=== PATIENT | male | born 1995 | race Caucasian/White ===

== ENCOUNTER 2018-08-30 14:50 | Emergency (ER) | payer OTHER, BC ==
[2018-08-30] MEDS: IBUPROFEN 600 MG TAB PO (17:27)
== END 2018-08-30 17:30 | disposition home or self-care (01) ==
LOC: M ED 14:50
DX: S70.02XA Contusion of left hip, initial encounter (principal); S70.12XA Contusion of left thigh, initial encounter; W55.89XA Other contact with other mammals, initial encounter; Y92.89 Other specified places as the place of occurrence of the external cause; Y99.0 Civilian activity done for income or pay
CPT/HCPCS: 72170

== ENCOUNTER 2022-01-07 16:09 | Emergency (ER) | payer OTHER, SELFPAY ==
[~2022-01-07] VITALS: Ht 180.3 cm; Wt 110.5 kg
[2022-01-07 16:09] VITALS: BP 145/85
== END 2022-01-07 17:50 | disposition left against medical advice (07) ==
LOC: M ED 16:09
DX: Z53.21 Procedure and treatment not carried out due to patient leaving prior to being seen by health care provider (principal)

== ENCOUNTER 2023-06-18 13:54 | Emergency (ER) | payer SELFPAY ==
[~2023-06-18] VITALS: Ht 180.3 cm; Wt 107.0 kg
[2023-06-18 16:07] LABS: RSV AMPLIFICATION NEGATIVE (NEGATIVE)
[2023-06-18] MEDS ORDERED: NS 1,000 ML IV ONE (16:25)
[2023-06-18 17:04] LABS: BASO # 0.1 10^3/uL (0.0-0.2); BASO % 0.4 % (0.0-1.0); EOS % 0.1 % (0.0-3.0); HEMATOCRIT 44.3 % (42.0-52.0); LYMPH # 1.6 10^3/uL (1.5-5.0); LYMPH % 12.1 % (24.0-44.0); MEAN CORPUSCULAR HEMOGLOBIN 30.1 pg (27.0-33.0); MEAN CORPUSCULAR HGB CONC 33.9 g/dl (32.0-36.5); MONO # 1.4 10^3/uL (0.0-0.8); MONO % 9.9 % (2.0-8.0); NEUTROPHILS # 10.5 10^3/uL (1.5-8.5); NEUTROPHILS % 77.2 % (36.0-66.0); PLATELET COUNT, AUTOMATED 205 10^3/uL (150-450); RED BLOOD COUNT 4.98 10^6/uL (4.30-6.10); WHITE BLOOD COUNT 13.6 10^3/uL (4.0-10.0)
[2023-06-18 17:27] LABS: LIPASE 32 U/L (12-53)
[2023-06-18 17:29] LABS: ALBUMIN 3.8 G/DL (3.2-5.2); ALKALINE PHOSPHATASE 97 U/L (46-116); ALT/SGPT 59 U/L (7.0-40); AST/SGOT 35 U/L (<34); BILIRUBIN,DIRECT 0.3 MG/DL (<0.4); BILIRUBIN,TOTAL 0.7 MG/DL (0.3-1.2); BLOOD UREA NITROGEN 7 MG/DL (9-23); CALCIUM LEVEL 9.4 MG/DL (8.5-10.1); CARBON DIOXIDE LEVEL 30 MMOL/L (20-31); CHLORIDE LEVEL 101 MMOL/L (98-107); CREATININE FOR GFR 0.91 MG/DL (0.70-1.30); GLOMERULAR FILTRATION RATE > 60.0 (>60); GLUCOSE, FASTING 84 MG/DL (60-100); POTASSIUM SERUM 4.1 MMOL/L (3.5-5.1); SODIUM LEVEL 138 MMOL/L (136-145)
[2023-06-18] MEDS ORDERED: ISOVUE-370 76% 100ML VIAL As Ordered ONE (17:43)
[2023-06-18] MEDS ORDERED: AZITHROMYCIN 250MG TABLET PO ONE (20:00)
[2023-06-18] MEDS ORDERED: ONDA4TAB6 PO (20:03)
[2023-06-18] MEDS ORDERED: AZIT500T5 PO (20:03)
[2023-06-18 20:15] VITALS: BP 140/74; TEMP 99.1; O2SAT 98
== END 2023-06-18 20:23 | disposition home or self-care (01) ==
LOC: M ED 13:54
DX: K51.019 Ulcerative (chronic) pancolitis with unspecified complications (principal); A04.0 Enteropathogenic Escherichia coli infection; A04.5 Campylobacter enteritis; F10.10 Alcohol abuse, uncomplicated; Z79.83 Long term (current) use of bisphosphonates; Z79.2 Long term (current) use of antibiotics
CPT/HCPCS: 74177; 80048; 80076; 83605; 83690; 85025; 87507; 87631; 96360; 96361; 99284; Q9967